=== PATIENT | female | born 1990 | race Caucasian/White ===

== ENCOUNTER 2016-04-30 19:42 | Emergency (ER) | payer BC, OTHER, SELFPAY ==
[2016-04-30] MEDS ORDERED: Ondansetron HCl/PF 4 MG/2 ML Vial ONE (20:29)
[2016-04-30] MEDS ORDERED: Ketorolac Tromethamine 30 MG/ML VIAL ONE (20:29)
[2016-04-30 20:32] LABS: #Basophils 0.1 thou/uL (0.0-0.2); #Eosinphils 0.2 thou/uL (0.0-0.7); #Lymphocytes 3.6 thou/uL (1.20-3.40); #Monocytes 0.8 thou/uL (0.11-0.59); #Neutrophils 6.8 thou/uL (1.40-6.50); %Eosinophils 1.4 % (0.0-10.0); %Monocytes 6.7 % (0.0-10.0); Hematocrit 43.4 % (36.0-47.0); Mean Platelet Volume 10.4 fL (7.4-10.4); Red Blood Cell (RBC) Count 4.98 mill/uL (4.20-5.40); White Blood Cell (WBC) Count 11.5 thou/uL (4.8-10.8)
[2016-04-30 20:44] LABS: ALT (SGPT) 50 U/L (0-55); AST (SGOT) 51 U/L (5-34); Alkaline Phosphatase 94 U/L (40-150); Anion Gap 15 mmol/L (10-20); BUN (Urea Nitrogen) 13 mg/dL (7.0-18.7); Bilirubin, Total 0.6 mg/dL (0.2-1.2); Calc. Creatinine Clearance 0 mL/min (70-130); Calcium 9.6 mg/dL (7.8-10.44); Carbon Dioxide 24 mmol/L (22-29); Chloride 105 mmol/L (98-107); Estimated GFR-MDRD 85; Globulin 3.2 g/dL (2.4-3.5); Lipase 62 U/L (8-78); Protein, Total 7.7 g/dL (6.0-8.3)
[2016-04-30 20:51] LABS: Troponin I Less than 0.010 ng/mL (< 0.028)
--- NOTE | 2016-04-30 21:41 | ERRECORD ---
[facility] EMERGENCY RECORD HPI ABDOMINAL PAIN (21:12 [facility]) CHIEF COMPLAINTS: Patient presents for evaluation of abdominal pain. HISTORIAN: History provided by patient, 25F presents with complaints of back, chest, and upper abdominal pain. Was at a [employer] tonight, ate pizza and appetizers, and then this evening had sudden onset back pain, upper abdominal band like pain with radiation to her chest as well. Denies shortness of breath, denies nausea or vomiting. Denies urinary complaints. Has significant family cardiac history, is also very obese. LOCATION FEMALE: Symptoms are localized, most severe in the right upper quadrant, Radiation, to the back, to the chest. QUALITY: Pain is dull in nature, described as aching. TIME COURSE: Sudden onset of symptoms, Symptoms are constant, Symptoms are worsening. RELIEVED BY: Patient's condition relieved by nothing because patient has not tried anything for relief. EXACERBATED BY: Patient's condition exacerbated by supine position. RISK FACTORS FEMALE: Coronary artery disease risk factors, include family history. ROS (21:14 [facility]) CONSTITUTIONAL: Negative constitutional review of systems, Historian denies chills, denies fever. EYES: Negative eye review of systems, Historian denies eye pain, denies vision changes. ENT: Negative ears, nose, throat review of systems, Historian denies rhinorrhea, denies sore throat, denies voice changes. CARDIOVASCULAR: Negative cardiovascular review of systems, Historian denies chest pain, denies palpitations. RESPIRATORY: Negative respiratory review of systems, Historian denies cough, denies shortness of breath. GI: Historian reports abdominal pain, RUQ abdominal pain, band like radiating to back and LUQ and chest. GENITOURINARY FEMALE: Negative genitourinary review of systems, Historian denies dysuria, denies frequency. MUSCULOSKELETAL: Negative musculoskeletal review of systems, Historian denies back pain, denies fall, denies injury. SKIN: Negative skin review of systems, Historian denies rash, denies skin changes. NEUROLOGIC: Negative neurologic review of systems, Historian denies headache, denies mental status changes, denies paralysis, denies paresthesias, denies sensory changes. HEMO/LYMPHATIC: Normal hematologic/lymphatic system review, Historian denies abnormal blood clotting. ALLERGIC/IMMUNOLOGIC: Normal allergy/immunologic system review, Historian denies frequent infections. PAST MEDICAL HISTORY (19:57 [facility]) MEDICAL HISTORY: No past medical history, Flu vaccine not up to date. &a-1R&a+25V*p+0X*[id number]*c152B*c15G*c2P*p-0X&a-25V&a+1RName: Lavern Cantu : 1990 F25 MedRec: [id number] AcctNum: [id number] Prepared: Sat Apr 30, 2016 21:30 by Interface Page 1 of 4 pMD [facility] EMERGENCY RECORD FEMALE SURGICAL HISTORY: Surgical history of appendectomy. PSYCHIATRIC HISTORY: Psychiatric history includes, anxiety. SOCIAL HISTORY: Patient currently uses tobacco, chews tobacco, daily, Patient has smoked for 10 years, 2 cans/week. FAMILY HISTORY: Maternal history of cardiac disease, coronary artery disease, myocardial infarction, Maternal history of diabetes. KNOWN ALLERGIES No recorded allergies CURRENT MEDICATIONS (20:01 [facility]) ANTIDEPRESSANT: PT NOT SURE OF DOSAGE OR MEDICATION. VITAL SIGNS VITAL SIGNS: Pain: 0, Time: 04/30/2016 21:00. (21:00 [facility]) BP: 126/91, Pulse: 101, Resp: 22 (Non-Labored), Temp: 98.0 (Oral), Pain: 5, O2 sat: 96 on Room Air, Time: 04/30/2016 19:52. (19:52 [facility]) BP: 123/86, Pulse: 87, Resp: 23 (Non-Labored), O2 sat: 96 on Room Air, Time: 04/30/2016 20:00. (20:00 [facility]) BP: 123/83, Pulse: 90, Resp: 21 (Non-Labored), O2 sat: 96 on Room Air, Time: 04/30/2016 20:47. (20:47 [facility]) BP: 119/84, Pulse: 78, Resp: 18 (Non-Labored), Temp: 97.7 (Oral), O2 sat: 97 on Room Air, Time: 04/30/2016 21:01. (21:01 [facility]) PHYSICAL EXAM (21:14 [facility]) CONSTITUTIONAL: Vital signs reviewed, Patient afebrile, Pulse normal, Blood pressure normal, Respiratory rate normal, Patient appears non toxic, Patient appears pain free, Patient alert and oriented to person, place and time. HEAD: Head exam normal, Head exam included findings of head atraumatic, normocephalic. EYES: Eye exam normal, Eye exam included findings of eyelids normal to inspection, Pupils equally round and reactive to light, Extraocular muscles intact, no nystagmus. ENT: ENT exam normal, Ear exam normal, external ear normal, tympanic membranes normal, no bleeding, Pharynx exam normal, Uvula exam normal, Tonsil exam normal, Mouth exam normal, mucous membranes moist, teeth normal. NECK: Neck exam normal, Neck exam included findings of normal range of motion, Trachea midline, no meningeal signs, no cervical adenopathy, no tenderness. RESPIRATORY CHEST: Respiratory and chest exam normal, Respiratory exam included findings of no respiratory distress, Breath sounds clear. CARDIOVASCULAR: Cardiovascular assessment normal, Cardiovascular exam included findings of heart rate regular rate and rhythm, Heart sounds normal. &a-1R&a+25V*p+0X*l0244G*c152B*c15G*c2P*p-0X&a-25V&a+1RName: Lavern Cantu : 1990 F25 MedRec: [id number] AcctNum: [id number] Prepared: Sat Apr 30, 2016 21:30 by Interface Page 2 of 4 D [facility] EMERGENCY RECORD ABDOMEN FEMALE: Abdominal exam included findings of abdomen tender, to the right upper quadrant, severe intensity, RUQ abdominal pain, no RLQ pain, no lower abdominal pain. BACK: Back exam normal, Back exam included findings of normal inspection, range of motion normal, no tenderness. UPPER EXTREMITY: Upper extremity exam normal, Upper extremity exam included findings of inspection normal, Range of motion normal, Motor strength normal, Sensation intact, Radial pulse normal. LOWER EXTREMITY: Lower extremity exam normal, Lower extremity exam included findings of inspection normal, Range of motion normal, Motor strength normal, Sensation intact, Posterior tibial pulse normal, Pedal pulse normal. NEURO: Neuro exam normal, Neuro exam findings include patient oriented to person, place and time, Speech normal, Gait normal, Cranial nerves intact, no focal motor deficits, no focal sensory deficits. SKIN: Skin exam normal, Skin exam included findings of skin warm, dry, and normal in color, no rash. PSYCHIATRIC: Psychiatric exam normal, Normal affect. MEDICATION ADMINISTRATION SUMMARY Drug Name: morphine (PF) injection, Dose Ordered: 4 mg, Route: IV Push, Status: Given, Time: 20:38 04/30/2016, Drug Name: Toradol injection, Dose Ordered: 15 mg, Route: IV Push, Status: Given, Time: 20:36 04/30/2016, Drug Name: Zofran intravenous, Dose Ordered: 4 mg, Route: IV Push, Status: Given, Time: 20:34 04/30/2016, Drug Name: *sodium chloride 0.9 % intravenous, Dose Ordered: 1 L, Route: IV Fluid Infusion, Status: Given, Time: 20:32 04/30/2016, *Additional information available in notes, Detailed record available in Medication Service section. DOCTOR NOTES (21:16 [facility]) RE-EVALUATION: Routine re-evaluation, after administration of analgesics, Routine re-evaluation, after administration of IV fluids, The patient's condition has improved. TEXT: Patient presented with pain all over, but primary location was RUQ. bedside US demonstrated multiple gallstone but no wall thickening or pericholecystic fluid. Lab work was reassuring, as was EKG and chest xray. I believe her symptoms are secondary to biliary colic, as she has had similar symptoms multiple times in the past. I do not believe she requires further inpatient workup or management, and as her symptoms have resolved, she is appropriate for outpatient follow up. PATIENT STATUS: Patient has improved since arrival to emergency department. PATIENT PLAN: The patient will be discharged, The patient will follow up with primary care physician. DATA REVIEWED: Lab data reviewed, Xray data reviewed, Reviewed &a-1R&a+25V*p+0X*[id number]*c152B*c15G*c2P*p-0X&a-25V&a+1RName: CantuZakiey : 1990 F25 MedRec: [id number] AcctNum: [id number] Prepared: Chris Apr 30, 2016 21:30 by Interface Page 3 of 4 pMD [facility] EMERGENCY RECORD EKG. PROBLEM LIST No recorded problems DIAGNOSIS (21:04 [facility]) FINAL: PRIMARY: biliary colic. PRESCRIPTION No recorded prescriptions DISPOSITION PATIENT: Disposition Type: Discharge, Disposition: *Discharge Home. (21:04 SAUL) Patient left the department. (21:28 MARISSA) Koehler: [facility]=HERNÁN Vieira, Candelaria HUGHES=MD Mitzi, Aditya &a-1R&a+25V*p+0X*[id number]*c152B*c15G*c2P*p-0X&a-25V&a+1RName: Lavern Cantu : 1990 F25 MedRec: [id number] AcctNum: [id number] Prepared: Chris Apr 30, 2016 21:30 by Interface Page 4 of 4 pMD MTDD
--- NOTE | 2016-04-30 21:49 | PICIS ---
[facility] EMERGENCY RECORD TRIAGE ([facility] Apr 30, 2016 19:49 AADK) PATIENT: NAME: Lavern Cantu, AGE: 25, GENDER: female, : Mon1990, TIME OF GREET: Sat Apr 30, 2016 19:43, PREFERRED LANGUAGE: Syriac, ETHNICITY: Not or , ECODE BILLING MAP: [facility], SSN: [id number], Zip Code: [address], KG WEIGHT: 129.73 (est.), PHONE: , , , PERSON ID: [id number], PCP: DO URENA KRISTEL. ([facility] Apr 30, 2016 19:49 AADK) PAYMENT: [id number]. (20:06) COMPLAINT: CHEST PAIN/FLANK PAIN. ([facility] Apr 30, 2016 19:49 AADK) ADMISSION: URGENCY: 2 Emergent, ADMISSION SOURCE: Home, TRANSPORT: CAR, BED: ER -01. 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 (19:57 AADK) SIRS SCORING: Heart Rate 55-109 (0), Temp range 96.8-101.1 (0), respiratory rate 12-24 (0), Mental Status altered: no (0), Total SIRS Score 0, Infection or Suspected Infection: No. (19:57 AADK) TRIAGE SCREENING: Patient denies suicidal ideation, Patient denies presence of domestic violence. (19:57 AADK) LMP: Last menstrual period: 04/09/2016. (19:57 AADK) PROVIDERS: TRIAGE NURSE: Candelaria Vieira RN. ([facility] Apr 30, 2016 19:49 AADK) KNOWN ALLERGIES No recorded allergies CURRENT MEDICATIONS (20:01 AADK) ANTIDEPRESSANT: PT NOT SURE OF DOSAGE OR MEDICATION. VITAL SIGNS VITAL SIGNS: Pain: 0, Time: 04/30/2016 21:00. (21:00 AADK) BP: 126/91, Pulse: 101, Resp: 22 (Non-Labored), Temp: 98.0 (Oral), Pain: 5, O2 sat: 96 on Room Air, Time: 04/30/2016 19:52. (19:52 AADK) BP: 123/86, Pulse: 87, Resp: 23 (Non-Labored), O2 sat: 96 on Room Air, Time: 04/30/2016 20:00. (20:00 AADK) BP: 123/83, Pulse: 90, Resp: 21 (Non-Labored), O2 sat: 96 on Room Air, Time: 04/30/2016 20:47. (20:47 AADK) BP: 119/84, Pulse: 78, Resp: 18 (Non-Labored), Temp: 97.7 (Oral), O2 sat: 97 on Room Air, Time: 04/30/2016 21:01. (21:01 AADK) NURSING ASSESSMENT: CARDIOVASCULAR (19:49 AADK) CONSTITUTIONAL: Patient arrives ambulatory, Gait steady, History obtained from patient, Patient appears, anxious, in distress due to pain, Patient cooperative, Patient alert, Oriented to person, place and time, Skin warm, Skin dry, Skin normal in color, Mucous membranes pink, Mucous membranes moist, Patient is well-groomed, Patient complains of CHEST/BACK PAIN, PT PRESENTS &a-1R&a+25V*p+0X*[id number]*c152B*c15G*c2P*p-0X&a-25V&a+1RName: Lavern Cantu : 1990 F25 MedRec: [id number] AcctNum: [id number] Prepared: Sat Apr 30, 2016 21:30 by Interface Page 1 of 11 pMD [facility] EMERGENCY RECORD TO ER WITH C/O CHEST/BACK PAIN, 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 STATES IT STARTED IN HER BACK AND RADIATES TO CHEST AND UPPER ABDOMEN. DENIES N/V, ARM OR JAW PAIN. SKIN W/D, NO DIAPHORESIS NOTED. A/R PULSE EQUAL AND REGULAR. INSECTICIDE MIXER APPLIED. PAIN: to the epigastric region, midsternal, TIGHTNESS, constant, on a scale 0-10 patient rates pain as 5. CARDIOVASCULAR: Cardiovascular assessment findings include heart rate, tachycardic, Rate 105, Heart rhythm, sinus tachycardia, Heart sounds normal, S1, S2, Left radial pulse +3(easily palpated, considered normal), Right radial pulse +3(easily palpated, considered normal), No associated diaphoresis, no associated dyspnea, no associated dizziness, no associated weakness. RESPIRATORY/CHEST: Breath sounds clear, Respiratory assessment findings include respiratory effort easy, Respirations regular, Conversing normally, Neck and chest exam findings include trachea midline, Chest expansion equal, Chest movement symmetrical, no signs of distress, no retractions noted, no cyanosis. SAFETY: Side rails up, Cart/Stretcher in lowest position, Family at bedside, Call light within reach, Hospital ID band on, Patient in view of the nursing station. NURSING PROCEDURE: INSECTICIDE MIXER PATIENT IDENTIFIER: Patient actively involved in identification process, Patient's identity verified by patient stating name, Patient's identity verified by patient stating date. (19:55 AADK) INSECTICIDE MIXER: Cardiac monitoring indicated for complaint of chest pain, Patient placed on quality assurance monitor body, Heart rate: 100'S, showing sinus tachycardia, without ectopy, Patient placed on non-invasive blood pressure monitor, with disposable blood pressure cuff applied, Patient placed on continuous pulse oximetry, Adult/pediatric oxisensor applied, Oxygen saturation 96%. (19:55 AADK) FOLLOW-UP: After procedure, alarms set and on, After procedure, patient tolerating monitoring. (20:10 AADK) NURSING PROCEDURE: DISCHARGE NOTE (21:20 AADK) DISCHARGE: Patient discharged to home, ambulating without assistance, family driving, accompanied by parent, Summary of Care printed/ provided, Patient requested and was provided an electronic copy of Discharge Instructions, Transition record given to patient, Discharge instructions given to patient, Discharge instructions given to mother, Simple or moderate discharge teaching performed, Above person(s) verbalized understanding of discharge instructions and follow-up care. BELONGINGS: Belongings remain with patient, Valuables remain with patient. NOTES: Notes: PT WITHOUT C/O PAIN AT TIME OF DISCHARGE. &a-1R&a+25V*p+0X*[id number]*c152B*c15G*c2P*p-0X&a-25V&a+1RName: Lavern Cantu : 1990 F25 MedRec: [id number] AcctN: [id number] Prepared: Sat Apr 30, 2016 21:30 by Interface Page 2 of 11 D [facility] EMERGENCY RECORD NURSING PROCEDURE: EKG CHART PATIENT IDENTIFIER: Patient actively involved in identification process, Patient's identity verified by patient stating name, Patient's identity verified by patient stating date. (19:56 AADK) Patient actively involved in identification process, Patient's identity verified by patient stating name, Patient's identity verified by patient stating date. (19:59 AADK) EKG: EKG indicated for complaint of chest pain, 12 lead EKG performed on the left chest, done by Binu AGUILERA RN, first EKG. (19:56 AADK) EKG indicated for complaint of chest pain, 12 lead EKG performed on the left chest, done by Binu AGUILERA RN, second EKG. (19:59 AADK) FOLLOW-UP: After procedure, EKG for interpretation given to Dr. WEBB. (19:56 AADK) After procedure, EKG for interpretation given to Dr. WEBB. (19:59 AADK) NURSING PROCEDURE: IV PATIENT IDENITIFIER: Patient actively involved in identification process, Patient's identity verified by patient stating name, Patient's identity verified by patient stating date. (20:15 AADK) IV SITE 1: IV therapy indicated for medication administration, IV therapy indicated for CHEST PAIN, IV established, to the right antecubital, using an 18 gauge catheter, in one attempt, IV site prepped with Chlorhexidine, Saline lock established, Flushed with normal saline (mls): 5, Labs drawn at time of placement, labeled in the presence of the patient and sent to lab. (20:15 AADK) FOLLOW-UP SITE 1: After procedure, 2x2 dressing applied, IV discontinued, due to patient being discharged, catheter intact, Notes: 2X2 PLACED OVER SITE AND SECURED WITH COBAN. NO ACTIVE BLEEDING NOTED. (21:11 AADK) NURSING PROCEDURE: TRANSPORT TO [facility] PATIENT IDENTIFIER: Patient actively involved in identification process, Patient's identity verified by patient stating name, Patient's identity verified by patient stating date. (20:18 AADK) TRANSPORT TO TESTS: Transport indicated to facilitate diagnosis, Patient transported to x-ray, via wheelchair, Accompanied by x-ray optics test technician. (20:18 AADK) FOLLOW-UP: After procedure, patient returned to emergency department. (20:24 AADK) SAFETY: Side rails up, Cart/Stretcher in lowest position, Family at bedside, Call light within reach, Hospital ID band on, Patient in view of the nursing station. (20:24 AADK) ORDER DETAILS Order Name: Cardiac Profile w/CKMB & Troponin - I, Status: Active, Time: 20:09 04/30/2016, User: SAUL, &a-1R&a+25V*p+0X*[id number]*c152B*c15G*c2P*p-0X&a-25V&a+1RName: Lavern Cantu : 1990 F25 MedRec: [id number] AcctNum: [id number] Prepared: Sat Apr 30, 2016 21:30 by Interface Page 3 of 11 [facility] EMERGENCY RECORD - Ordered for: MD Webb Jason, - Entered by: MD Webb Jason - Sat Apr 30, 2016 20:09, - Quantity: 1, Order Name: CBC with Differential, Status: Active, Time: 20:09 04/30/2016, User: SAUL, - Ordered for: MD Webb Jason, - Entered by: MD Webb Jason - Sat Apr 30, 2016 20:09, - Quantity: 1, Order Name: Comprehensive Metabolic Panel, Status: Active, Time: 20:09 04/30/2016, User: SAUL, - Ordered for: MD Webb Jason, - Entered by: MD Webb Jason - Sat Apr 30, 2016 20:09, - Quantity: 1, Order Name: Lipase, Status: Active, Time: 20:09 04/30/2016, User: SAUL, - Ordered for: MD Webb Jason, - Entered by: MD Webb Jason - Sat Apr 30, 2016 20:09, - Quantity: 1, Order Name: SALINE LOCK, Status: Done, Time: 20:26 04/30/2016, User: ANGUSK, - Ordered for: MD Webb Jason, - Entered by: MD Webb Jason - Sat Apr 30, 2016 20:09, - Quantity: 1, Order Name: XR Chest Pa & Lat STANDARD, Status: Active, Time: 20:09 04/30/2016, User: SAUL, - Ordered for: MD Webb Jason, - Entered by: MD Webb Jason - Sat Apr 30, 2016 20:09, - Quantity: 1. MEDICATION ADMINISTRATION SUMMARY Drug Name: morphine (PF) injection, Dose Ordered: 4 mg, Route: IV Push, Status: Given, Time: 20:38 04/30/2016, Drug Name: Toradol injection, Dose Ordered: 15 mg, Route: IV Push, Status: Given, Time: 20:36 04/30/2016, Drug Name: Zofran intravenous, Dose Ordered: 4 mg, Route: IV Push, Status: Given, Time: 20:34 04/30/2016, Drug Name: *sodium chloride 0.9 % intravenous, Dose Ordered: 1 L, Route: IV Fluid Infusion, Status: Given, Time: 20:32 04/30/2016, *Additional information available in notes, Detailed record available in Medication Service section. MEDICATION SERVICE morphine (PF) injection: Order: morphine (PF) injection (morphine sulfate/preservative free) - Dose: 4 mg : IV Push Ordered by: Aditya Webb MD Entered by: Aditya Webb MD Sat Apr 30, 2016 20:10 , Acknowledged by: Candelaria Vieira RN Sat Apr 30, 2016 20:27 Documented as given by: Candelaria Vieira RN Sat Apr 30, 2016 20:38 Patient, Medication, Dose, Route and Time verified prior to administration. &a-1R&a+25V*p+0X*m6379Q*c152B*c15G*c2P*p-0X&a-25V&a+1RName: Lavern Cantu : 1990 F25 MedRec: [id number] AcctNum: [id number] Prepared: Sat Apr 30, 2016 21:30 by Interface Page 4 of 11 [facility] EMERGENCY RECORD Amount given: 4 MG, IV SITE #1 IVP, initial medication, Slowly, Awake and alert- acceptable, Connections checked prior to administration, Line traced prior to administration, Catheter placement confirmed via flush prior to administration, IV site without signs or symptoms of infiltration during medication administration, No swelling during administration, No drainage during administration, IV flushed after administration, Correct patient, time, route, dose and medication confirmed prior to administration, Patient advised of actions and side-effects prior to administration, Allergies confirmed and medications reviewed prior to administration, Patient in position of comfort, Side rails up, Cart in lowest position, Family at bedside, Call light in reach. morphine (PF) injection: Response assessment performed, No signs or symptoms of allergic reaction noted, Decreased pain, _IV SITE #1:_, Pain: 0. (21:00 AADK) sodium chloride 0.9 % intravenous: Order: sodium chloride 0.9 % intravenous (0.9 % sodium chloride) - Dose: 1 L : IV Fluid Infusion Notes: (Bolus) Ordered by: Aditya Webb MD Entered by: Aditya Webb MD Sat Apr 30, 2016 20:10 , Acknowledged by: Candelaria Vieira RN Sat Apr 30, 2016 20:27 Documented as given by: Candelaria Vieira RN Sat Apr 30, 2016 20:32 Patient, Medication, Dose, Route and Time verified prior to administration. Amount given: 1000 ML, IV SITE #1 IV fluids established for hydration, IV SITE #1 into right antecubital, IV SITE #1 1st bag hung, amount 1 Liter hung, IV SITE #1 bolus of 1000 ml established, via primary tubing, Connections checked prior to administration, Line traced prior to administration, Catheter placement confirmed via flush prior to administration, IV site without signs or symptoms of infiltration during medication administration, No swelling during administration, No drainage during administration, IV flushed after administration, Correct patient, time, route, dose and medication confirmed prior to administration, Patient advised of actions and side-effects prior to administration, Allergies confirmed and medications reviewed prior to administration, Patient in position of comfort, Side rails up, Cart in lowest position, Family at bedside, Call light in reach. : Follow Up : Response assessment performed, No signs or symptoms of allergic reaction noted, Decreased symptoms, _IV SITE #1:_, IV fluid infusion discontinued, on Sat Apr 30, 2016 21:15, 45 minutes, ., Total amount infused: 500, IV Discontinued with catheter intact. (21:15 AADK) Toradol injection: Order: Toradol injection (ketorolac tromethamine) - Dose: 15 mg : IV Push Ordered by: Aditya Webb MD Entered by: Aditya Webb MD Sat Apr 30, 2016 20:30 Documented as given by: Candelaria Vieira RN Sat Apr 30, 2016 20:36 Patient, Medication, Dose, Route and Time verified prior to administration. &a-1R&a+25V*p+0X*k1200I*c152B*c15G*c2P*p-0X&a-25V&a+1RName: Lavern Cantu : 1990 F25 MedRec: [id number] AcctNum: [id number] Prepared: Sat Apr 30, 2016 21:30 by Interface Page 5 of 11 pMD [facility] EMERGENCY RECORD Amount given: 15 MG, IV SITE #1 IVP, initial medication, Slowly, Connections checked prior to administration, Line traced prior to administration, Catheter placement confirmed via flush prior to administration, IV site without signs or symptoms of infiltration during medication administration, No swelling during administration, No drainage during administration, IV flushed after administration, Correct patient, time, route, dose and medication confirmed prior to administration, Patient advised of actions and side-effects prior to administration, Allergies confirmed and medications reviewed prior to administration, Patient in position of comfort, Side rails up, Cart in lowest position, Family at bedside, Call light in reach. : Follow Up : Response assessment performed, No signs or symptoms of allergic reaction noted, Decreased pain, _IV SITE #1:_. (21:01 AADK) Zofran intravenous: Order: Zofran intravenous (ondansetron HCl) - Dose: 4 mg : IV Push Ordered by: Aditya Webb MD Entered by: Aditya Webb MD Sat Apr 30, 2016 20:10 , Acknowledged by: Candelaria Vieira RN Sat Apr 30, 2016 20:27 Documented as given by: Candelaria Vieira RN Sat Apr 30, 2016 20:34 Patient, Medication, Dose, Route and Time verified prior to administration. Amount given: 4 MG, IV SITE #1 IVP, initial medication, Slowly, Connections checked prior to administration, Line traced prior to administration, Catheter placement confirmed via flush prior to administration, IV site without signs or symptoms of infiltration during medication administration, No swelling during administration, No drainage during administration, IV flushed after administration, Correct patient, time, route, dose and medication confirmed prior to administration, Patient advised of actions and side-effects prior to administration, Allergies confirmed and medications reviewed prior to administration, Patient in position of comfort, Side rails up, Cart in lowest position, Family at bedside, Call light in reach. : Follow Up : Response assessment performed, No signs or symptoms of allergic reaction noted, Decreased symptoms, _IV SITE #1:_. (21:01 [facility]) HPI ABDOMINAL PAIN (21:12 [facility]) CHIEF COMPLAINTS: Patient presents for evaluation of abdominal pain. HISTORIAN: History provided by patient, 25F presents with complaints of back, chest, and upper abdominal pain. Was at a constitution party tonight, ate pizza and appetizers, and then this evening had sudden onset back pain, upper abdominal band like pain with radiation to her chest as well. Denies shortness of breath, denies nausea or vomiting. Denies urinary complaints. Has significant family cardiac history, is also very obese. LOCATION FEMALE: Symptoms are localized, most severe in the right upper quadrant, Radiation, to the back, to the chest. QUALITY: Pain is dull in nature, described as aching. TIME COURSE: Sudden onset of symptoms, Symptoms are &a-1R&a+25V*p+0X*a7796K*c152B*c15G*c2P*p-0X&a-25V&a+1RName: Lavern Cantu : 1990 F25 MedRec: [id number] AcctNum: [id number] Prepared: Sat Apr 30, 2016 21:30 by Interface Page 6 of 11 pMD [facility] EMERGENCY RECORD constant, Symptoms are worsening. RELIEVED BY: Patient's condition relieved by nothing because patient has not tried anything for relief. EXACERBATED BY: Patient's condition exacerbated by supine position. RISK FACTORS FEMALE: Coronary artery disease risk factors, include family history. ROS (21:14 [facility]) CONSTITUTIONAL: Negative constitutional review of systems, Historian denies chills, denies fever. EYES: Negative eye review of systems, Historian denies eye pain, denies vision changes. ENT: Negative ears, nose, throat review of systems, Historian denies rhinorrhea, denies sore throat, denies voice changes. CARDIOVASCULAR: Negative cardiovascular review of systems, Historian denies chest pain, denies palpitations. RESPIRATORY: Negative respiratory review of systems, Historian denies cough, denies shortness of breath. GI: Historian reports abdominal pain, RUQ abdominal pain, band like radiating to back and LUQ and chest. GENITOURINARY FEMALE: Negative genitourinary review of systems, Historian denies dysuria, denies frequency. MUSCULOSKELETAL: Negative musculoskeletal review of systems, Historian denies back pain, denies fall, denies injury. SKIN: Negative skin review of systems, Historian denies rash, denies skin changes. NEUROLOGIC: Negative neurologic review of systems, Historian denies headache, denies mental status changes, denies paralysis, denies paresthesias, denies sensory changes. HEMO/LYMPHATIC: Normal hematologic/lymphatic system review, Historian denies abnormal blood clotting. ALLERGIC/IMMUNOLOGIC: Normal allergy/immunologic system review, Historian denies frequent infections. PAST MEDICAL HISTORY (19:57 AADK) MEDICAL HISTORY: No past medical history, Flu vaccine not up to date. FEMALE SURGICAL HISTORY: Surgical history of appendectomy. PSYCHIATRIC HISTORY: Psychiatric history includes, anxiety. SOCIAL HISTORY: Patient currently uses tobacco, chews tobacco, daily, Patient has smoked for 10 years, 2 cans/week. FAMILY HISTORY: Maternal history of cardiac disease, coronary artery disease, myocardial infarction, Maternal history of diabetes. PHYSICAL EXAM (21:14 [facility]) CONSTITUTIONAL: Vital signs reviewed, Patient afebrile, Pulse normal, Blood pressure normal, Respiratory rate normal, Patient &a-1R&a+25V*p+0X*o0630V*c152B*c15G*c2P*p-0X&a-25V&a+1RName: Lavern Cantu : 1990 F25 MedRec: [id number] AcctNum: [id number] Prepared: Sat Apr 30, 2016 21:30 by Interface Page 7 of 11 pMD [facility] EMERGENCY RECORD appears non toxic, Patient appears pain free, Patient alert and oriented to person, place and time. HEAD: Head exam normal, Head exam included findings of head atraumatic, normocephalic. EYES: Eye exam normal, Eye exam included findings of eyelids normal to inspection, Pupils equally round and reactive to light, Extraocular muscles intact, no nystagmus. ENT: ENT exam normal, Ear exam normal, external ear normal, tympanic membranes normal, no bleeding, Pharynx exam normal, Uvula exam normal, Tonsil exam normal, Mouth exam normal, mucous membranes moist, teeth normal. NECK: Neck exam normal, Neck exam included findings of normal range of motion, Trachea midline, no meningeal signs, no cervical adenopathy, no tenderness. RESPIRATORY CHEST: Respiratory and chest exam normal, Respiratory exam included findings of no respiratory distress, Breath sounds clear. CARDIOVASCULAR: Cardiovascular assessment normal, Cardiovascular exam included findings of heart rate regular rate and rhythm, Heart sounds normal. ABDOMEN FEMALE: Abdominal exam included findings of abdomen tender, to the right upper quadrant, severe intensity, RUQ abdominal pain, no RLQ pain, no lower abdominal pain. BACK: Back exam normal, Back exam included findings of normal inspection, range of motion normal, no tenderness. UPPER EXTREMITY: Upper extremity exam normal, Upper extremity exam included findings of inspection normal, Range of motion normal, Motor strength normal, Sensation intact, Radial pulse normal. LOWER EXTREMITY: Lower extremity exam normal, Lower extremity exam included findings of inspection normal, Range of motion normal, Motor strength normal, Sensation intact, Posterior tibial pulse normal, Pedal pulse normal. NEURO: Neuro exam normal, Neuro exam findings include patient oriented to person, place and time, Speech normal, Gait normal, Cranial nerves intact, no focal motor deficits, no focal sensory deficits. SKIN: Skin exam normal, Skin exam included findings of skin warm, dry, and normal in color, no rash. PSYCHIATRIC: Psychiatric exam normal, Normal affect. EVENTS TRANSFER: Triage to Emergency Emergency Room -01. (Sat Apr 30, 2016 19:49 AADK) Removed from Emergency Emergency Room -01. (21:28 AADK) DOCTOR NOTES (21:16 [facility]) RE-EVALUATION: Routine re-evaluation, after administration of analgesics, Routine re-evaluation, after administration of IV fluids, The patient's condition has improved. TEXT: Patient presented with pain all over, but primary &a-1R&a+25V*p+0X*p0197Y*c152B*c15G*c2P*p-0X&a-25V&a+1RName: Lavern Cantu : 1990 F25 MedRec: [id number] AcctNum: [id number] Prepared: Chris Apr 30, 2016 21:30 by Interface Page 8 of 11 pMD [facility] EMERGENCY RECORD location was [facility]. bedside US demonstrated multiple gallstone but no wall thickening or pericholecystic fluid. Lab work was reassuring, as was EKG and chest xray. I believe her symptoms are secondary to biliary colic, as she has had similar symptoms multiple times in the past. I do not believe she requires further inpatient workup or management, and as her symptoms have resolved, she is appropriate for outpatient follow up. PATIENT STATUS: Patient has improved since arrival to emergency department. PATIENT PLAN: The patient will be discharged, The patient will follow up with primary care physician. DATA REVIEWED: Lab data reviewed, Xray data reviewed, Reviewed EKG. PROBLEM LIST No recorded problems DIAGNOSIS (21:04 [facility]) FINAL: PRIMARY: biliary colic. DISPOSITION PATIENT: Disposition Type: Discharge, Disposition: *Discharge Home. (21:04 JJA) Patient left the department. (21:28 AADK) INSTRUCTION (21:04 [facility]) DISCHARGE: BILIARY COLIC WITH GALLSTONE (CONFIRMED). FOLLOWUP: DO URENA KRISTEL, [facility], [address] [place] [address], [phone], MD Stoddard Michael, General Surgery, [address] [place] [address], [address] [address], . SPECIAL: Try to avoid high fat meals. Drink more water, follow up with surgeon in clinic. Return if pain worsens or if you develop fever. PRESCRIPTION No recorded prescriptions IMAGING *EKG: Image captured from scanner. (20:26 AADK) Image captured from scanner. (20:43 AADK) *DISCHARGE INSTRUCTIONS RECEIPT: Image captured from scanner. (21:19 AADK) MONITOR STRIPS: Image captured from scanner. (21:19 AADK) *SUPPLY CHARGE SHEET: Image captured from scanner. (21:20 AADK) ADMIN (21:18 [facility]) DIGITAL SIGNATURE: MD Mitzi, Aditya. RESULTS (21:16 [facility]) LABORATORY: Cardiac Profile w/CKMB & TropI Collection DT: [facility] Apr 30, 2016 20:24, &a-1R&a+25V*p+0X*[id number]*c152B*c15G*c2P*p-0X&a-25V&a+1RName: Lavern Cantu : 1990 F25 MedRec: [id number] AcctNum: [id number] Prepared: [facility] Apr 30, 2016 21:30 by Interface Page 9 of 11 pMD [facility] EMERGENCY RECORD CKMB 1.7 ng/mL, Range (0-6.6), Troponin I Less than 0.010 ng/mL, Range (< 0.028), Reference Range , 0.00 - 0.028 ng/mL Negative 0.029 - 0.29 ng/mL , Indeterminate Greater or Equal to 0.3 ng/mL Strongly suggests PA , . Lipase Collection DT: [facility] Apr 30, 2016 20:24, Lipase 62 U/L, Range (8-78). Comprehensive Metabolic Panel Collection DT: [facility] Apr 30, 2016 20:24, Sodium 140 mmol/L, Range (136-145), Potassium 4.0 mmol/L, Range (3.5-5.1), Chloride 105 mmol/L, Range (98-107), Carbon Dioxide 24 mmol/L, Range (22-29), Anion Gap 15 mmol/L, Range (10-20), BUN (Urea Nitrogen) 13 mg/dL, Range (7.0-18.7), Creatinine 0.82 mg/dL, Range (0.6-1.1), Estimated GFR-MDRD 85 , Reference Range for Estimated GFR: Greater than 90, mL/min/1.73 m2 NOTE: The MDRD equation has not been validated for use, with the elderly (over 70 years of age), women, patients with, serious comorbid condition or persons with extremes of body size, muscle, mass, or nutritional status. , Glucose 96 mg/dL, Range (70-105), Calcium 9.6 mg/dL, Range (7.8-10.44), Bilirubin, Total 0.6 mg/dL, Range (0.2-1.2), Protein, Total 7.7 g/dL, Range (6.0-8.3), NOTE: Plasma values are generally 0.3 to 0.5 g/dL higher than serum values, due to the presence of fibrinogen. , Albumin 4.5 g/dL, Range (3.5-5.0), Globulin 3.2 g/dL, Range (2.4-3.5), Alb/Glob Ratio 1.4 g/dL, Range (1.2-2.2), Alkaline Phosphatase 94 U/L, Range (40-150), *AST (SGOT) 51 - H U/L, Range (5-34), ALT (SGPT) 50 U/L, Range (0-55). CBC with Differential Collection DT: Sat Apr 30, 2016 20:24, *White Blood Cell (WBC) Count 11.5 - H thou/uL, Range (4.8-10.8), Red Blood Cell (RBC) Count 4.98 mill/uL, Range (4.20-5.40), Hemoglobin 14.6 g/dL, Range (12.0-16.0), Hematocrit 43.4 %, Range (36.0-47.0), Mean Corpuscular Volume 87.1 fl, Range (81.0-99.0), Mean Corpuscular Hemoglobin 29.3 pg, Range (27.0-31.0), Mean Corpuscular HGB CONC 33.6 g/dL, Range (32.0-36.0), RBC Distribution Width 11.9 %, Range (11.5-14.5), Platelet Count 209 thou/uL, Range (130-400), Mean Platelet Volume 10.4 fL, Range (7.4-10.4), %Neutrophils 59.4 %, Range (42.0-75.0), &a-1R&a+25V*p+0X*m9330V*c152B*c15G*c2P*p-0X&a-25V&a+1RName: Lavern Cantu : 1990 F25 MedRec: [id number] AcctNum: [id number] Prepared: Sat Apr 30, 2016 21:30 by Interface Page 10 of 11 pMD [facility] EMERGENCY RECORD %Lymphocytes 31.5 %, Range (21.0-51.0), %Monocytes 6.7 %, Range (0.0-10.0), %Eosinophils 1.4 %, Range (0.0-10.0), %Basophils 1.0 %, Range (0.0-1.0), *#Neutrophils 6.8 - H thou/uL, Range (1.40-6.50), *#Lymphocytes 3.6 - H thou/uL, Range (1.20-3.40), *#Monocytes 0.8 - H thou/uL, Range (0.11-0.59), #Eosinphils 0.2 thou/uL, Range (0.0-0.7), #Basophils 0.1 thou/uL, Range (0.0-0.2). Koehler: AADK=HERNÁN Vieira, Candelaria GILLETTEC=MD Mitzi, Aditya &a-1R&a+25V*p+0X*c8960K*c152B*c15G*c2P*p-0X&a-25V&a+1RName: Lavern Cantu : 1990 F25 MedRec: [id number] AcctNum: [id number] Prepared: Sat Apr 30, 2016 21:30 by Interface Page 11 of 11 pMD MTDD
--- NOTE | 2016-04-30 21:58 | ERRECORD ---
[facility] EMERGENCY RECORD HPI ABDOMINAL PAIN (21:12 [facility]) CHIEF COMPLAINTS: Patient presents for evaluation of abdominal pain. HISTORIAN: History provided by patient, 25F presents with complaints of back, chest, and upper abdominal pain. Was at a libertarian tonight, ate pizza and appetizers, and then this evening had sudden onset back pain, upper abdominal band like pain with radiation to her chest as well. Denies shortness of breath, denies nausea or vomiting. Denies urinary complaints. Has significant family cardiac history, is also very obese. LOCATION FEMALE: Symptoms are localized, most severe in the right upper quadrant, Radiation, to the back, to the chest. QUALITY: Pain is dull in nature, described as aching. TIME COURSE: Sudden onset of symptoms, Symptoms are constant, Symptoms are worsening. RELIEVED BY: Patient's condition relieved by nothing because patient has not tried anything for relief. EXACERBATED BY: Patient's condition exacerbated by supine position. RISK FACTORS FEMALE: Coronary artery disease risk factors, include family history. ROS (21:14 [facility]) CONSTITUTIONAL: Negative constitutional review of systems, Historian denies chills, denies fever. EYES: Negative eye review of systems, Historian denies eye pain, denies vision changes. ENT: Negative ears, nose, throat review of systems, Historian denies rhinorrhea, denies sore throat, denies voice changes. CARDIOVASCULAR: Negative cardiovascular review of systems, Historian denies chest pain, denies palpitations. RESPIRATORY: Negative respiratory review of systems, Historian denies cough, denies shortness of breath. GI: Historian reports abdominal pain, RUQ abdominal pain, band like radiating to back and LUQ and chest. GENITOURINARY FEMALE: Negative genitourinary review of systems, Historian denies dysuria, denies frequency. MUSCULOSKELETAL: Negative musculoskeletal review of systems, Historian denies back pain, denies fall, denies injury. SKIN: Negative skin review of systems, Historian denies rash, denies skin changes. NEUROLOGIC: Negative neurologic review of systems, Historian denies headache, denies mental status changes, denies paralysis, denies paresthesias, denies sensory changes. HEMO/LYMPHATIC: Normal hematologic/lymphatic system review, Historian denies abnormal blood clotting. ALLERGIC/IMMUNOLOGIC: Normal allergy/immunologic system review, Historian denies frequent infections. PAST MEDICAL HISTORY (19:57 AADK) MEDICAL HISTORY: No past medical history, Flu vaccine not up to date. &a-1R&a+25V*p+0X*m2588D*c152B*c15G*c2P*p-0X&a-25V&a+1RName: Lavern Cantu : 1990 F25 MedRec: [id number] AcctNum: [id number] Prepared: Sat Apr 30, 2016 21:30 by Interface Page 1 of 4 pMD [facility] EMERGENCY RECORD FEMALE SURGICAL HISTORY: Surgical history of appendectomy. PSYCHIATRIC HISTORY: Psychiatric history includes, anxiety. SOCIAL HISTORY: Patient currently uses tobacco, chews tobacco, daily, Patient has smoked for 10 years, 2 cans/week. FAMILY HISTORY: Maternal history of cardiac disease, coronary artery disease, myocardial infarction, Maternal history of diabetes. KNOWN ALLERGIES No recorded allergies CURRENT MEDICATIONS (20:01 AADK) ANTIDEPRESSANT: PT NOT SURE OF DOSAGE OR MEDICATION. VITAL SIGNS VITAL SIGNS: Pain: 0, Time: 04/30/2016 21:00. (21:00 AADK) BP: 126/91, Pulse: 101, Resp: 22 (Non-Labored), Temp: 98.0 (Oral), Pain: 5, O2 sat: 96 on Room Air, Time: 04/30/2016 19:52. (19:52 AADK) BP: 123/86, Pulse: 87, Resp: 23 (Non-Labored), O2 sat: 96 on Room Air, Time: 04/30/2016 20:00. (20:00 AADK) BP: 123/83, Pulse: 90, Resp: 21 (Non-Labored), O2 sat: 96 on Room Air, Time: 04/30/2016 20:47. (20:47 AADK) BP: 119/84, Pulse: 78, Resp: 18 (Non-Labored), Temp: 97.7 (Oral), O2 sat: 97 on Room Air, Time: 04/30/2016 21:01. (21:01 AADK) PHYSICAL EXAM (21:14 [facility]) CONSTITUTIONAL: Vital signs reviewed, Patient afebrile, Pulse normal, Blood pressure normal, Respiratory rate normal, Patient appears non toxic, Patient appears pain free, Patient alert and oriented to person, place and time. HEAD: Head exam normal, Head exam included findings of head atraumatic, normocephalic. EYES: Eye exam normal, Eye exam included findings of eyelids normal to inspection, Pupils equally round and reactive to light, Extraocular muscles intact, no nystagmus. ENT: ENT exam normal, Ear exam normal, external ear normal, tympanic membranes normal, no bleeding, Pharynx exam normal, Uvula exam normal, Tonsil exam normal, Mouth exam normal, mucous membranes moist, teeth normal. NECK: Neck exam normal, Neck exam included findings of normal range of motion, Trachea midline, no meningeal signs, no cervical adenopathy, no tenderness. RESPIRATORY CHEST: Respiratory and chest exam normal, Respiratory exam included findings of no respiratory distress, Breath sounds clear. CARDIOVASCULAR: Cardiovascular assessment normal, Cardiovascular exam included findings of heart rate regular rate and rhythm, Heart sounds normal. &a-1R&a+25V*p+0X*x4423W*c152B*c15G*c2P*p-0X&a-25V&a+1RName: Lavern Cantu : 1990 F25 MedRec: [id number] AcctNum: [id number] Prepared: Sat Apr 30, 2016 21:30 by Interface Page 2 of 4 D [facility] EMERGENCY RECORD ABDOMEN FEMALE: Abdominal exam included findings of abdomen tender, to the right upper quadrant, severe intensity, RUQ abdominal pain, no RLQ pain, no lower abdominal pain. BACK: Back exam normal, Back exam included findings of normal inspection, range of motion normal, no tenderness. UPPER EXTREMITY: Upper extremity exam normal, Upper extremity exam included findings of inspection normal, Range of motion normal, Motor strength normal, Sensation intact, Radial pulse normal. LOWER EXTREMITY: Lower extremity exam normal, Lower extremity exam included findings of inspection normal, Range of motion normal, Motor strength normal, Sensation intact, Posterior tibial pulse normal, Pedal pulse normal. NEURO: Neuro exam normal, Neuro exam findings include patient oriented to person, place and time, Speech normal, Gait normal, Cranial nerves intact, no focal motor deficits, no focal sensory deficits. SKIN: Skin exam normal, Skin exam included findings of skin warm, dry, and normal in color, no rash. PSYCHIATRIC: Psychiatric exam normal, Normal affect. MEDICATION ADMINISTRATION SUMMARY Drug Name: morphine (PF) injection, Dose Ordered: 4 mg, Route: IV Push, Status: Given, Time: 20:38 04/30/2016, Drug Name: Toradol injection, Dose Ordered: 15 mg, Route: IV Push, Status: Given, Time: 20:36 04/30/2016, Drug Name: Zofran intravenous, Dose Ordered: 4 mg, Route: IV Push, Status: Given, Time: 20:34 04/30/2016, Drug Name: *sodium chloride 0.9 % intravenous, Dose Ordered: 1 L, Route: IV Fluid Infusion, Status: Given, Time: 20:32 04/30/2016, *Additional information available in notes, Detailed record available in Medication Service section. DOCTOR NOTES (21:16 [facility]) RE-EVALUATION: Routine re-evaluation, after administration of analgesics, Routine re-evaluation, after administration of IV fluids, The patient's condition has improved. TEXT: Patient presented with pain all over, but primary location was RUQ. bedside US demonstrated multiple gallstone but no wall thickening or pericholecystic fluid. Lab work was reassuring, as was EKG and chest xray. I believe her symptoms are secondary to biliary colic, as she has had similar symptoms multiple times in the past. I do not believe she requires further inpatient workup or management, and as her symptoms have resolved, she is appropriate for outpatient follow up. PATIENT STATUS: Patient has improved since arrival to emergency department. PATIENT PLAN: The patient will be discharged, The patient will follow up with primary care physician. DATA REVIEWED: Lab data reviewed, Xray data reviewed, Reviewed &a-1R&a+25V*p+0X*j0444M*c152B*c15G*c2P*p-0X&a-25V&a+1RName: CantuZakiey : 1990 F25 MedRec: [id number] AcctNum: [id number] Prepared: Chris Apr 30, 2016 21:30 by Interface Page 3 of 4 pMD [facility] EMERGENCY RECORD EKG. PROBLEM LIST No recorded problems DIAGNOSIS (21:04 [facility]) FINAL: PRIMARY: biliary colic. PRESCRIPTION No recorded prescriptions DISPOSITION PATIENT: Disposition Type: Discharge, Disposition: *Discharge Home. (21:04 SAUL) Patient left the department. (21:28 MARISSA) Koehler: AADK=HERNÁN Vieira, Candelaria HUGHES=MD Mitzi, Aditya &a-1R&a+25V*p+0X*c6972G*c152B*c15G*c2P*p-0X&a-25V&a+1RName: Lavern Cantu : 1990 F25 MedRec: [id number] AcctNum: [id number] Prepared: Chris Apr 30, 2016 21:30 by Interface Page 4 of 4 pMD MTDD
--- NOTE | 2016-04-30 23:19 | RAD ---
CHEST TWO VIEWS 04/30/16 Comparison is made with the 05/01/11 study. There has been no adverse interval change. The heart is normal in size and the lungs are clear. The mediastinum shows no widening or shift. There is no congestion or vessels or pleural effusion. There is no sign of pneumonia. The bony structures appear intact. IMPRESSION: Stable exam showing no acute finding. POS: HOME
== END 2016-04-30 21:20 | disposition home or self-care (01) ==
LOC: BURERS 19:42
DX: K80.50 Calculus of bile duct without cholangitis or cholecystitis without obstruction (principal); F41.9 Anxiety disorder, unspecified; F17.220 Nicotine dependence, chewing tobacco, uncomplicated
CPT/HCPCS: 71020; 80053; 82553; 83690; 84484; 85025; 96361; 96374; 96375; J1885; J2270; J2405

== ENCOUNTER 2017-04-11 01:08 | Emergency (ER) | payer BC, SELFPAY ==
[2017-04-11] MEDS ORDERED: Neomycin-Polymyxin-Hc 7.5 ML BOT ONE (01:21)
[2017-04-11] MEDS ORDERED: Ibuprofen 200 MG TAB ONE (01:21)
== END 2017-04-11 01:35 | disposition home or self-care (01) ==
LOC: BURERS 01:08
DX: H60.92 Unspecified otitis externa, left ear (principal); F41.9 Anxiety disorder, unspecified; F32.9 Major depressive disorder, single episode, unspecified; F17.220 Nicotine dependence, chewing tobacco, uncomplicated
CPT/HCPCS: 99282

== ENCOUNTER 2020-05-29 14:46 | Outpatient (CLI) | payer OTHER ==
--- NOTE | 2020-05-29 17:58 | RAD ---
RIGHT THUMB THREE VIEWS: 05/29/20 No fracture or joint abnormality is seen. There is no dislocation. All bones appear intact. IMPRESSION: No acute finding. POS: HOME
--- NOTE | 2020-05-29 17:59 | RAD ---
RIGHT WRIST THREE VIEWS: 05/29/20 No fracture was seen. The carpal bones appear intact and the carpal relationships seem normal. The me tacarpals appear normal as well. IMPRESSION: No acute finding. POS: HOME
== END 2020-05-29 14:47 | disposition home or self-care (01) ==
LOC: BURRAD 14:46
PROVIDERS: ATTEND Physician Assistant
DX: M25.531 Pain in right wrist (principal); M79.644 Pain in right finger(s); M25.431 Effusion, right wrist; W19.XXXA Unspecified fall, initial encounter

== ENCOUNTER 2020-09-22 22:26 | Observation (INO) | payer OTHER, SELFPAY ==
[2020-09-22 23:08] LABS: #Lymphocytes 1.8 thou/uL (1.20-3.40); #Monocytes 0.5 thou/uL (0.11-0.59); #Neutrophils 5.9 thou/uL (1.40-6.50); %Basophils 0.5 % (0.0-1.0); %Eosinophils 0.3 % (0.0-10.0); %Lymphocytes 21.9 % (21.0-51.0); %Monocytes 5.5 % (0.0-10.0); %Neutrophils 71.8 % (42.0-75.0); Hemoglobin 14.7 g/dL (12.0-16.0); Mean Corpuscular HGB CONC 33.3 g/dL (32.0-36.0); Mean Corpuscular Hemoglobin 29.2 pg (27.0-31.0); Mean Corpuscular Volume 87.8 fL (78.0-98.0); Mean Platelet Volume 9.5 fL (7.4-10.4); Platelet Count 171 thou/uL (130-400); RBC Distribution Width 12.4 % (11.5-14.5); Red Blood Cell (RBC) Count 5.04 mill/uL (4.20-5.40); White Blood Cell (WBC) Count 8.2 thou/uL (4.8-10.8)
[2020-09-22 23:13] LABS: BHCG - Serum Negative (NEGATIVE); Pregs Control Background? CLEAR/WHITE (CLR/WHITE); Pregs Control Bar Appear? YES (CONTROL BAR)
[2020-09-22] MEDS ORDERED: Albuterol 200 PUFF (6.7GM INHALER) ONE (23:19)
[2020-09-22 23:24] LABS: ALT (SGPT) 29 U/L (8-55); AST (SGOT) 19 U/L (5-34); Albumin 4.1 g/dL (3.5-5.0); Alkaline Phosphatase 58 U/L (40-110); Anion Gap 16 mmol/L (10-20); BUN (Urea Nitrogen) 18 mg/dL (7.0-18.7); Bilirubin, Total 0.5 mg/dL (0.2-1.2); Calc. Creatinine Clearance 0 mL/min (70-130); Calcium 8.7 mg/dL (7.8-10.44); Carbon Dioxide 26 mmol/L (22-29); Chloride 99 mmol/L (98-107); Glucose 97 mg/dL (70-105); Potassium 3.8 mmol/L (3.5-5.1); Protein, Total 7.1 g/dL (6.0-8.3); Sodium 137 mmol/L (136-145)
[2020-09-23] MEDS ORDERED: Enoxaparin Sodium 100 MG/ML SYRINGE ONE (01:34)
[2020-09-23] MEDS ORDERED: Dexamethasone 10 MG/ML VIAL ONE (01:34)
[2020-09-23 02:23] VITALS: BMI 49.9
[2020-09-23] MEDS ORDERED: Ketorolac Tromethamine 30 MG/ML VIAL IVP PRN (03:41)
[2020-09-23] MEDS ORDERED: Morphine 4 MG/ML VIAL SLOW IVP PRN (03:41)
[2020-09-23] MEDS ORDERED: Ondansetron ODT 4 MG TAB SL PRN (03:45)
[2020-09-23] MEDS ORDERED: Ondansetron PF 4 MG/2 ML Vial IVP PRN (03:45)
[2020-09-23] MEDS: Acetaminophen 325 MG TAB PO PRN ×2 (05:30→22:02)
[2020-09-23] MEDS: Sodium Chloride 0.9% 1,000 ML IV SCH ×2 (07:50→16:37)
[2020-09-23] MEDS: Escitalopram Oxalate 20 mg Tablet PO SCH (08:48)
[2020-09-23] MEDS: Albuterol 200 PUFF (6.7GM INHALER) INH SCH ×3 (08:49→19:35)
[2020-09-23] MEDS ORDERED: [UNRECOGNIZED DRUG - REMARK] FS SCH (09:00)
[2020-09-23] MEDS ORDERED: ESCITALOPRAM OXALATE 10 MG PO SCH (09:00)
[2020-09-24] MEDS: Albuterol 200 PUFF (6.7GM INHALER) INH SCH ×7 (01:56→23:00)
[2020-09-24] MEDS: Sodium Chloride 0.9% 1,000 ML IV SCH ×2 (01:57→09:00)
[2020-09-24] MEDS ORDERED: Dexamethasone 4 MG TAB PO SCH (08:00)
[2020-09-24] MEDS: Escitalopram Oxalate 20 mg Tablet PO SCH (09:26)
[2020-09-24] MEDS: Acetaminophen 325 MG TAB PO PRN (22:00)
[2020-09-25] MEDS: Albuterol 200 PUFF (6.7GM INHALER) INH SCH ×2 (03:00→06:49)
[2020-09-25] MEDS: Sodium Chloride 0.9% 1,000 ML IV SCH (03:19)
[2020-09-25 15:25] VITALS: BP 110/70; TEMP 98.8
== END 2020-09-25 15:15 | disposition home or self-care (01) ==
LOC: BURERS 22:26 → BURMED 09-23 01:27
PROVIDERS: ADMIT Family Medicine; ATTEND Family Medicine
DX: U07.1 COVID-19 (principal); J12.82 Pneumonia due to coronavirus disease 2019; E86.0 Dehydration; R16.1 Splenomegaly, not elsewhere classified; F17.220 Nicotine dependence, chewing tobacco, uncomplicated; E66.9 Obesity, unspecified; Z68.42 Body mass index [BMI] 45.0-49.9, adult; Z79.899 Other long term (current) drug therapy; Z88.0 Allergy status to penicillin
CPT/HCPCS: 71045; 71250; 80053; 83605; 83880; 84484; 84703; 85025; 93005; 96372; 96374; G0378; J1100; J1650; J7050; J8540

== ENCOUNTER 2020-10-26 10:38 | Outpatient (CLI) | payer OTHER | END 2020-10-26 10:39 | disposition home or self-care (01) | LOC: BURRAD 10:38 | PROVIDERS: ATTEND Family Medicine | DX: U07.1 COVID-19 (principal); J12.82 Pneumonia due to coronavirus disease 2019; R91.8 Other nonspecific abnormal finding of lung field | CPT/HCPCS: 71046 ==

== ENCOUNTER 2021-10-05 21:09 | Emergency (ER) | payer SELFPAY ==
[2021-10-05] MEDS ORDERED: Ibuprofen 800 MG TAB ONE ×2 (21:34→21:35)
[2021-10-05] MEDS ORDERED: Ciprofloxacin 500 MG TAB ONE ×2 (21:34→21:35)
== END 2021-10-05 22:53 | disposition home or self-care (01) ==
LOC: BURERS 21:09
DX: H60.502 Unspecified acute noninfective otitis externa, left ear (principal); E66.9 Obesity, unspecified; J45.909 Unspecified asthma, uncomplicated; F17.220 Nicotine dependence, chewing tobacco, uncomplicated; Z79.899 Other long term (current) drug therapy; Z79.51 Long term (current) use of inhaled steroids
CPT/HCPCS: 99282

== ENCOUNTER 2022-01-12 15:58 | Emergency (ER) | payer BC, SELFPAY ==
[2022-01-12] MEDS ORDERED: Meclizine HCl 25 MG TAB ONE (16:34)
[2022-01-12] MEDS ORDERED: Acetaminophen 500 MG TAB ONE (16:35)
[2022-01-12 16:53] LABS: #Eosinphils 0.2 thou/uL (0.0-0.7); #Lymphocytes 2.1 thou/uL (1.20-3.40); #Monocytes 0.4 thou/uL (0.11-0.59); #Neutrophils 4.3 thou/uL (1.40-6.50); %Basophils 0.7 % (0.0-1.0); %Eosinophils 2.7 % (0.0-10.0); %Lymphocytes 30.3 % (21.0-51.0); %Monocytes 5.2 % (0.0-10.0); %Neutrophils 61.2 % (42.0-75.0); Mean Corpuscular HGB CONC 32.7 g/dL (32.0-36.0); Mean Corpuscular Hemoglobin 29.3 pg (27.0-31.0); Mean Corpuscular Volume 89.5 fL (78.0-98.0); Mean Platelet Volume 9.4 fL (7.4-10.4); Platelet Count 210 thou/uL (130-400); RBC Distribution Width 12.3 % (11.5-14.5); Red Blood Cell (RBC) Count 4.44 mill/uL (4.20-5.40)
[2022-01-12 17:09] LABS: ALT (SGPT) 62 U/L (8-55); AST (SGOT) 41 U/L (5-34); Albumin 4.1 g/dL (3.5-5.0); Alkaline Phosphatase 70 U/L (40-110); Anion Gap 11 mmol/L (10-20); BUN (Urea Nitrogen) 13 mg/dL (7.0-18.7); Bilirubin, Total 0.4 mg/dL (0.2-1.2); Calc. Creatinine Clearance 0 mL/min (70-130); Calcium 8.9 mg/dL (7.8-10.44); Carbon Dioxide 25 mmol/L (22-29); Chloride 103 mmol/L (98-107); Estimated GFR 109; Globulin 2.9 g/dL (2.4-3.5); Glucose 102 mg/dL (70-105); Potassium 4.2 mmol/L (3.5-5.1); Sodium 135 mmol/L (136-145)
== END 2022-01-12 17:22 | disposition home or self-care (01) ==
LOC: BURERS 15:58
DX: H81.13 Benign paroxysmal vertigo, bilateral (principal); J45.909 Unspecified asthma, uncomplicated; E66.9 Obesity, unspecified; F17.220 Nicotine dependence, chewing tobacco, uncomplicated
CPT/HCPCS: 36415; 70450; 80053; 85025

== ENCOUNTER 2023-12-23 15:10 | Emergency (ER) | payer BC | END 2023-12-23 16:07 | disposition home or self-care (01) | LOC: BURERS 15:10 | DX: T63.301A Toxic effect of unspecified spider venom, accidental (unintentional), initial encounter (principal); I10 Essential (primary) hypertension | CPT/HCPCS: 99282 ==